=== PATIENT | female | born 1945 | race Caucasian/White ===

== ENCOUNTER 2022-03-20 19:25 | Emergency (ER) | payer OTHER ==
[2022-03-20 19:33] VITALS: TEMP 98.1; BMI 34.0
[2022-03-20 20:32] LABS: BASO % 0.9 % (0-2.0); EOS % 1.7 % (0-4.5); HEMATOCRIT 37.3 % (32.4-45.2); HEMOGLOBIN 12.1 GM/dL (10.7-15.3); LYMPH % 36.2 % (8-40); MCH 28.9 pg (25.7-33.7); MCHC 32.5 g/dl (32.0-36.0); MEAN CELL VOLUME 89.1 fl (80-96); MEAN PLT VOLUME 8.1 fl (7.5-11.1); MONO % 8.5 % (3.8-10.2); NEUT % 52.7 % (42.8-82.8); PLATELET COUNT 280 10^3/uL (134-434); RBC 4.19 M/mm3 (3.60-5.2); RDW 14.8 % (11.6-15.6); WHITE BLOOD COUNT 6.3 K/mm3 (4.0-10.0)
[2022-03-20] MEDS ORDERED: ATENOLOL 50 MG TABLET (FP) PO ONE (20:39)
[2022-03-20 20:42] LABS: INR 1.38 (0.83-1.09); PROTHROMBIN TIME (PATIENT) 15.9 SEC (9.7-13.0)
[2022-03-20 20:45] LABS: ACTIVATED PTT 30.5 SECONDS (25.2-36.5)
[2022-03-20] MEDS ORDERED: ATENOLOL 50 MG TABLET (FP) ONE (20:53)
[2022-03-20 21:03] LABS: MAGNESIUM 2.1 mg/dL (1.8-2.4)
[2022-03-20 21:38] VITALS: BP 134/88; PULSE 94; RESP 20
[2022-03-20 22:09] LABS: BLOOD UREA NITROGEN 18.3 mg/dL (7-18); CALCIUM 8.5 mg/dL (8.5-10.1)
[2022-03-20 22:10] LABS: ALBUMIN 3.3 g/dl (3.4-5.0)
[2022-03-20 22:14] LABS: TOT PROT 7.1 g/dl (6.4-8.2)
[2022-03-20 22:17] LABS: BILIRUBIN,TOTAL 0.4 mg/dL (0.2-1)
[2022-03-20 23:07] LABS: CALCIUM 8.6 mg/dL (8.5-10.1)
[2022-03-20 23:08] LABS: ALBUMIN 3.4 g/dl (3.4-5.0); BLOOD UREA NITROGEN 16.8 mg/dL (7-18)
[2022-03-20 23:11] LABS: CREATININE 0.9 mg/dL (0.55-1.3)
[2022-03-20 23:12] LABS: BILIRUBIN,TOTAL 0.4 mg/dL (0.2-1); TOT PROT 7.2 g/dl (6.4-8.2)
[2022-03-21] MEDS ORDERED: APIXABAN 5 MG TABLET ONE (00:01)
[2022-03-21] MEDS ORDERED: APIXABAN 5 MG TABLET PO ONE ×2 (00:22→23:46)
== END 2022-03-21 00:28 | disposition home or self-care (01) ==
LOC: JER 19:25
DX: I48.91 Unspecified atrial fibrillation (principal)
CPT/HCPCS: 0241U-QW; 36415; 71045-TC-FY; 80053; 83735; 84443; 84484; 85025; 85610; 85730; 93005; 93010; 99285-25